=== PATIENT | female | born 1990 | race American Indian/Alaskan Native ===

== ENCOUNTER 2018-05-23 22:01 | Emergency (ER) | payer MEDICAID ==
[2018-05-23] MEDS ORDERED: ATIVAN IM PRN (22:29)
[2018-05-23] MEDS ORDERED: HALDOL IM PRN (22:29)
[2018-05-23] MEDS ORDERED: PROVENTIL IH PRN (22:29)
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
[2018-05-23 22:47] LABS: Basophils # (Auto) 0.1 K/mm3 (0.0-0.1); Basophils % (Auto) 1.4 % (0.0-1.8); Eosinophils # (Auto) 0.1 K/mm3 (0.0-0.4); Eosinophils % (Auto) 2.1 % (0.0-4.3); Hematocrit 39.4 % (30.3-42.9); Hemoglobin 13.2 gm/dl (10.1-14.3); Lymphocytes # (Auto) 1.9 K/mm3 (1.2-5.4); Lymphocytes % (Auto) 30.4 % (13.4-35.0); Mean Corpuscular HGB Conc 34 % (30-34); Mean Corpuscular Volume 95 fl (79-97); Monocytes # (Auto) 0.3 K/mm3 (0.0-0.8); Monocytes % (Auto) 4.7 % (0.0-7.3); Platelet Count 272 K/mm3 (140-440); Red Blood Count 4.17 M/mm3 (3.65-5.03); Red Cell Distribution Width 13.9 % (13.2-15.2)
[2018-05-23 23:05] LABS: Bacteria,Urine 1+ /HPF (Negative); Bilirubin,Urine NEG (Negative); Blood,Urine NEG (Negative); Color,Urine Straw (Yellow); Mucus,Urine FEW /HPF; Protein,Urine <15 mg/dL mg/dL (Negative); Urobilinogen,Urine < 2.0 mg/dL (<2.0)
[2018-05-23 23:08] LABS: Alanine Aminotransferase 5 units/L (7-56); Albumin 4.5 g/dL (3.9-5); BUN/Creatinine Ratio 14; Blood Urea Nitrogen 14 mg/dL (7-17); Calcium 9.4 mg/dL (8.4-10.2); Hemolysis Index 3
[2018-05-23 23:10] LABS: HCG Qualitative,Urine Negative (Negative)
[2018-05-23 23:13] LABS: Amphetamine Screen,Urine PRESUMPTIVE NEGATIVE; Benzodiazepines Screen,Urine PRESUMPTIVE NEGATIVE; Cannabinoid Screen,Urine PRESUMPTIVE NEGATIVE; Cocaine Screen,Urine PRESUMPTIVE NEGATIVE; Methadone Screen,Urine PRESUMPTIVE NEGATIVE; Opiate Screen,Urine PRESUMPTIVE NEGATIVE
[2018-05-24] MEDS ORDERED: TYLENOL PO PRN (00:08)
[2018-05-24] MEDS ORDERED: ATIVAN ONE (16:36)
[2018-05-24] MEDS ORDERED: ATIVAN PO ONE (16:37)
[2018-05-25] MEDS ORDERED: TAPAZOLE PO SCH (10:00)
[2018-05-25] MEDS ORDERED: LaMICtal PO SCH (10:00)
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
[2018-05-26 04:35] VITALS: BP 106/54
== END 2018-05-26 08:40 ==
LOC: ED 22:01 → EEVIPCON 22:01 → ED 05-26 08:40
DX: F39 Unspecified mood [affective] disorder (principal); F31.9 Bipolar disorder, unspecified; F43.10 Post-traumatic stress disorder, unspecified; E05.90 Thyrotoxicosis, unspecified without thyrotoxic crisis or storm; F84.0 Autistic disorder; J45.909 Unspecified asthma, uncomplicated; Z63.9 Problem related to primary support group, unspecified; Z88.6 Allergy status to analgesic agent
CPT/HCPCS: 36415; 80053; 80307; 81001; 81025; 82550; 84702; 84703; 85025; 96372; 99285; G0480; J2060; 80320

== ENCOUNTER 2018-11-19 08:22 | Outpatient (CLI) | payer OTHER ==
[2018-11-19] MEDS ORDERED: ALBUTEROL 2.5 MG/3 ML NEBU IH ONE (09:00)
== END 2018-11-19 08:23 | disposition home or self-care (01) ==
LOC: PF 08:22
PROVIDERS: ATTEND Internal Medicine
DX: J45.909 Unspecified asthma, uncomplicated (principal)
CPT/HCPCS: 94060; 94640; 94729

== ENCOUNTER 2019-05-03 12:46 | Emergency (ER) | payer MEDICAID, OTHER ==
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
[2019-05-03 14:26] LABS: Bilirubin,Urine NEG (Negative); Blood,Urine NEG (Negative); Color,Urine Straw (Yellow); Protein,Urine <15 mg/dL mg/dL (Negative); RBC,Urine < 1.0 /HPF (0.0-6.0); Urobilinogen,Urine < 2.0 mg/dL (<2.0)
[2019-05-03 14:31] LABS: BUN/Creatinine Ratio 10; Blood Urea Nitrogen 8 mg/dL (7-17); Calcium 9.5 mg/dL (8.4-10.2); Hemolysis Index 4
[2019-05-03 14:32] LABS: Basophils % (Auto) 0.6 % (0.0-1.8); Eosinophils % (Auto) 0.6 % (0.0-4.3); Hematocrit 41.6 % (30.3-42.9); Lymphocytes # (Auto) 1.5 K/mm3 (1.2-5.4); Lymphocytes % (Auto) 20.4 % (13.4-35.0); Mean Corpuscular HGB Conc 34 % (30-34); Mean Corpuscular Volume 95 fl (79-97); Monocytes # (Auto) 0.3 K/mm3 (0.0-0.8); Monocytes % (Auto) 4.3 % (0.0-7.3); Platelet Count 221 K/mm3 (140-440); Red Blood Count 4.37 M/mm3 (3.65-5.03); Red Cell Distribution Width 13.3 % (13.2-15.2)
[2019-05-03 14:34] LABS: Amphetamine Screen,Urine PRESUMPTIVE NEGATIVE; Benzodiazepines Screen,Urine PRESUMPTIVE NEGATIVE; Cannabinoid Screen,Urine PRESUMPTIVE NEGATIVE; Cocaine Screen,Urine PRESUMPTIVE NEGATIVE; Methadone Screen,Urine PRESUMPTIVE NEGATIVE; Opiate Screen,Urine PRESUMPTIVE NEGATIVE
[2019-05-03] MEDS ORDERED: LORazepam 1 MG TAB PO ONE (21:33)
[2019-05-04 02:05] VITALS: BP 110/60
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
== END 2019-05-04 16:11 ==
LOC: ED 12:46
DX: R45.851 Suicidal ideations (principal); F31.9 Bipolar disorder, unspecified; F43.11 Post-traumatic stress disorder, acute
CPT/HCPCS: 36415; 80048; 80307; 80320; 81001; 84703; 85025; 99284; G0480

== ENCOUNTER 2019-05-19 03:09 | Emergency (ER) | payer MEDICAID ==
[2019-05-19] MEDS ORDERED: FAMOTIDINE 20 MG TAB PO ONE (04:24)
[2019-05-19] MEDS ORDERED: methylPREDNISolone Sod Succinate 125 MG/2 ML INJ IM ONE (04:24)
[2019-05-19] MEDS ORDERED: diphenhydrAMINE 25 MG CAP PO ONE (04:24)
--- NOTE | 2019-05-19 04:36 | Emergency Department Report ---
ED Allergic Reaction HPI - General Chief complaint: Skin Rash Stated complaint: ITCHY,ALLERGIC REACTION Source: patient Mode of arrival: Ambulatory Limitations: No Limitations - History of Present Illness Initial Comments: Patient is a 28-year-old female with a history of anxiety and depression, asthma, bipolar disorder who presented to the ED with acute onset persistent diffuse itchy erythematous maculopapular urticarial nonfluctuant rashes for the last 2 days with no known etiology. Patient states that the redness and the pain and the swelling have worsened. Patient denies fever, chills, cough, sore throat, dysphagia, dysphonia, dizziness, change in vision, syncope, headache, nasal and sinus congestion, nausea, vomiting, diarrhea, abdominal pain, swollen lips or tongue, swollen face or wheezing, shortness of breath and chest pain. MD Complaint: allergic reaction, hives -: Sudden, days(s) (2) Exposure: unknown Symptoms: rash, itching. denies: facial swelling, lip swelling, difficulty swallowing, difficulty breathing, orolingual swelling, hoarseness, syncopy, d izziness, nausea, vomiting, other, abdominal pain Severity: severe Treatment Prior to Arrival: none Previous Allergy History: none - Related Data Home Medications Medication Instructions Recorded Confirmed Last Taken ALBUTEROL NEB's [Proventil 0.083% 2 puff IH Q4H PRN 05/24/18 05/24/18 Unknown NEBS] ARIPiprazole [Abilify TAB] 5 mg PO QAM 05/24/18 05/24/18 Unknown Fluticasone/Salmeterol(Nf) [Advair 1 puff IH Q12H 05/24/18 05/24/18 Unknown Hfa 115-21 Mcg (Nf)] OLANZapine [Zyprexa] 5 mg PO QHS 05/24/18 05/24/18 Unknown lamoTRIgine [LaMICtal] 25 mg PO BID 05/24/18 05/24/18 Unknown methIMAzole [Methimazole] 7.5 mg PO DAILY 05/24/18 05/24/18 Unknown Previous Rx's Medication Instructions Recorded Last Taken Type Famotidine [Pepcid] 20 mg PO Q12H #20 tablet 05/19/19 Unknown Rx Prednisone [predniSONE 10 mg 10 mg PO .TAPER #21 tab.ds.pk 05/19/19 Unknown Rx (6-Day Pack, 21 Tabs)] cephALEXin [Keflex] 500 mg PO Q8HR #30 cap 05/19/19 Unknown Rx diphenhydrAMINE [Benadryl CAP] 50 mg PO Q8HR PRN #30 capsule 05/19/19 Unknown Rx Allergies Allergy/AdvReac Type Severity Reaction Status Date / Time aspirin AdvReac Shortness Verified 05/23/18 22:05 of Breath ED Review of Systems ROS: Stated complaint: ITCHY,ALLERGIC REACTION Other details as noted in HPI Constitutional: denies: chills, fever Eyes: denies: eye pain, eye discharge, vision change ENT: denies: ear pain, throat pain Respiratory: denies: cough, orthopnea, shortness of breath, wheezing Cardiovascular: denies: chest pain, palpitations Endocrine: no symptoms reported Gastrointestinal: denies: abdominal pain, nausea, vomiting, diarrhea Genitourinary: denies: urgency, dysuria, discharge Musculoskeletal: denies: back pain, joint swelling, arthralgia Skin: rash (diffuse erythematous painful maculopapular nonfluctuant urticarial rashes), change in color, pruritus. denies: lesions Neurological: denies: headache, weakness, paresthesias Psychiatric: denies: anxiety, depression Hematological/Lymphatic: denies: easy bleeding, easy bruising ED Past Medical Hx - Past Medical History Hx Pulmonary Embolism: No Hx Psychiatric Treatment: Yes (BIPOLAR,PTSD) Hx Asthma: Yes Additional medical history: PTSD, Depression, Bipolar. Hyperthyroidism. Scoliosis - Surgical History Additional Surgical History: congenital heart defect repair, back surgery spinal infusion thyroidectomy - Social History Smoking Status: Never Smoker Substance Use Type: None - Medications Home Medications: Home Medications Medication Instructions Recorded Confirmed Last Taken Type ALBUTEROL NEB's [Proventil 0.083% 2 puff IH Q4H PRN 05/24/18 05/24/18 Unknown History NEBS] ARIPiprazole [Abilify TAB] 5 mg PO QAM 05/24/18 05/24/18 Unknown History Fluticasone/Salmeterol(Nf) [Advair 1 puff IH Q12H 05/24/18 05/24/18 Unknown History Hfa 115-21 Mcg (Nf)] OLANZapine [Zyprexa] 5 mg PO QHS 05/24/18 05/24/18 Unknown History lamoTRIgine [LaMICtal] 25 mg PO BID 05/24/18 05/24/18 Unknown History methIMAzole [Methimazole] 7.5 mg PO DAILY 05/24/18 05/24/18 Unknown History Famotidine [Pepcid] 20 mg PO Q12H #20 tablet 05/19/19 Unknown Rx Prednisone [predniSONE 10 mg 10 mg PO .TAPER #21 tab.ds.pk 05/19/19 Unknown Rx (6-Day Pack, 21 Tabs)] cephALEXin [Keflex] 500 mg PO Q8HR #30 cap 05/19/19 Unknown Rx diphenhydrAMINE [Benadryl CAP] 50 mg PO Q8HR PRN #30 capsule 05/19/19 Unknown Rx ED Physical Exam - General Limitations: No Limitations General appearance: alert, in no apparent distress - Head Head exam: Present: atraumatic, normocephalic, normal inspection - Eye Eye exam: Present: normal appearance, PERRL, EOMI Pupils: Present: normal accommodation - ENT ENT exam: Present: normal exam, mucous membranes moist, TM's normal bilaterally, normal external ear exam. Absent: normal orophraynx, mucous membranes dry - Neck Neck exam: Present: normal inspection, full ROM - Respiratory Respiratory exam: Present: normal lung sounds bilaterally. Absent: respiratory distress, wheezes, rales, rhonchi, chest wall tenderness, accessory muscle use, decreased breath sounds - Cardiovascular Cardiovascular Exam: Present: regular rate, normal rhythm, normal heart sounds. Absent: systolic murmur, diastolic murmur, rubs, gallop - GI/Abdominal GI/Abdominal exam: Present: soft, normal bowel sounds. Absent: tenderness, guarding, hyperactive bowel sounds, hypoactive bowel sounds, organomegaly - Extremities Exam Extremities exam: Present: normal inspection, full ROM, normal capillary refill - Back Exam Back exam: Present: normal inspection, full ROM. Absent: tenderness, CVA tenderness (R), CVA tenderness (L), muscle spasm, paraspinal tenderness, vertebral tenderness - Neurological Exam Neurological exam: Present: alert, oriented X3, CN II-XII intact, normal gait, reflexes normal - Psychiatric Psychiatric exam: Present: normal affect, normal mood - Skin Skin exam: Present: warm, dry, intact, rash (Diffuse erythematous maculopapular nonfluctuant urticarial rashes with localized tenderness), erythema, urticaria ED Course Vital Signs 05/19/19 03:12 Temperature 98.6 F Pulse Rate 90 Respiratory 18 Rate Blood Pressure 125/61 O2 Sat by Pulse 98 Oximetry ED Medical Decision Making - Medical Decision Making This is a 28-year-old female with a history of anxiety and depression, bipolar disorder who presented to the ED with acute onset persistent diffuse itchy erythematous maculopapular urticarial nonfluctuant rashes for the last 2 days with no known etiology. In the ED, patient is alert and oriented x3 and is not in distress but anxious in triage. Patient was treated in the ED for acute allergic reaction with steroids, Pepcid and Benadryl. On reevaluation, patient's itching improved significantly and resolved with medications. Patient was discharged home on Benadryl prescription, Pepcid prescription and steroids. Patient was advised to follow-up with her primary care physician in 2 to 3 days for reevaluation or return to the ED immediately if symptoms get worse. - Differential Diagnosis Allergic reaction; Urticaria; Cellulitis; Folliculitis Critical care attestation.: If time is entered above; I have spent that time in minutes in the direct care of this critically ill patient, excluding procedure time. ED Disposition Clinical Impression: Itching with irritation, Acute urticaria Acute allergic reaction Qualifiers: Encounter type: initial encounter Qualified Code(s): T78.40XA - Allergy, unspecified, initial encounter Cellulitis Qualifiers: Site of cellulitis: unspecified site Qualified Code(s): L03.90 - Cellulitis, unspecified Insect bites and stings Qualifiers: Encounter type: initial encounter Qualified Code(s): W57.XXXA - Bitten or stung by nonvenomous insect and other nonvenomous arthropods, initial encounter Disposition: DC-01 TO HOME OR SELFCARE Is pt being admited?: No Does the pt Need Aspirin: No Condition: Stable Instructions: Cellulitis (ED), Itchy Skin (ED), Urticaria (ED), Allergies (ED), Insect Bite or Sting (ED) Additional Instructions: Your symptoms are due to acute allergic reaction to an unknown substance most likely due to an insect bite. Therefore take medications with food, drink plenty of fluids and follow-up with your primary care physician in 2 to 3 days for reevaluation. Return to the ED immediately if symptoms get worse. Prescriptions: diphenhydrAMINE [Benadryl CAP] 50 mg PO Q8HR PRN #30 capsule PRN Reason: Itching cephALEXin [Keflex] 500 mg PO Q8HR #30 cap Famotidine [Pepcid] 20 mg PO Q12H #20 tablet Prednisone [predniSONE 10 mg (6-Day Pack, 21 Tabs)] 10 mg PO .TAPER #21 tab.ds.pk Referrals: [facility] [Provider Group] - 3-5 Days Time of Disposition: 04:44 Print Language: IRISH
[2019-05-19 05:40] VITALS: BP 122/70
== END 2019-05-19 05:12 | disposition home or self-care (01) ==
LOC: ED 03:09
DX: T78.40XA Allergy, unspecified, initial encounter (principal); L03.90 Cellulitis, unspecified; W57.XXXA Bitten or stung by nonvenomous insect and other nonvenomous arthropods, initial encounter; Y93.89 Activity, other specified; Y92.89 Other specified places as the place of occurrence of the external cause; Y99.8 Other external cause status
CPT/HCPCS: 96372; 99283; J2930